=== PATIENT | female | born 1940 | race Caucasian/White ===

== ENCOUNTER 2025-01-25 15:20 | Emergency (ER) | payer MEDICARE, SELFPAY ==
[2025-01-25 15:27] VITALS: BP 159/96
[2025-01-25 16:24] VITALS: BP 147/66
[2025-01-25 16:40] LABS: % Basophils 1.2 % (0-2); % Eosinophils 0.6 % (0-6); % Immature Granulocytes 0.5 % (0-0.5); % Lymphocytes 18.3 % (20.5-51.1); % Monocytes 11.6 % (1.7-9.3); % Neutrophils 67.8 % (42.2-75.2); Absolute Basophils 0.1 10^3/uL (0-0.2); Absolute Eosinophils 0.1 10^3/uL (0-0.7); Absolute Lymphocytes 1.4 10^3/uL (1.2-3.4); Absolute Monocytes 0.9 10^3/uL (0.1-0.6); Absolute Neutrophils 5.2 10^3/uL (1.4-6.5); Hematocrit 39.7 % (37.0-47.0); Hemoglobin 13.6 g/dL (12.0-16.0); Mean Corp Hgb Conc. 34.3 g/dL (33.0-37.0); Mean Corpuscular Hgb 30.8 pg (27.0-31.0); Mean Platelet Volume 9.3 fL (7.4-10.4); Nucleated Red Blood Cells % 0 %; Platelet Count 253 10^3/uL (130-400); Red Blood Cell Count 4.41 10^6/uL (4.20-5.40); White Blood Cell Count 7.7 10^3/uL (4.8-10.8)
[2025-01-25 16:49] LABS: ALT (SGPT) 20 U/L (0-35); AST (SGOT) 27 U/L (14-36); Albumin 4.8 g/dl (3.5-5.0); Alkaline Phosphatase 41 U/L (38-126); Blood Urea Nitrogen 30 mg/dl (7-17); Carbon Dioxide 28 mmol/L (22-30); Chloride 102 mmol/L (98-107); Glucose 95 mg/dl (70-99); Lipase 63 U/L (23-300); Potassium 4.9 mmol/L (3.5-5.1); Sodium 136 mmol/L (135-145); Total Bilirubin 0.7 mg/dl (0.2-1.3); Total Protein 7.6 g/dl (6.3-8.2); eGFR 44.36
[2025-01-25 17:00] VITALS: BP 152/68
[2025-01-25] MEDS: PROTONIX IV 40 MG IV (17:10)
[2025-01-25] MEDS: MAALOX 30 ML PO (17:12)
--- NOTE | 2025-01-25 17:26 | ED.GENMED ---
History of Present Illness
General
Chief Complaint: Abdominal Pain
Time Seen by Provider: 01/25/25 16:27
History of Present Illness
History of Present Illness:
84-year-old female with history of GERD presenting to the emergency department for upper abdominal pain. Patient reports symptoms started yesterday around lunchtime, however had not yet eaten. She tried taking her pantoprazole, famotidine, Pepcid
without relief. Does note a history of severe GERD, however this feels worse than usual. She notes constant discomfort in the middle of her abdomen. She was able to eat breakfast today. She denies chest pain or difficulty breathing. Denies any
history of abdominal surgeries. Denies any fever. Denies any additional acute medical complaints
Phy Exam
Physical Exam
Physical Exam:
General: Well-appearing, no clinical signs of dehydration, nontoxic and in no acute distress
HEENT: protecting airway
Neck: appears supple
CV: Normal heart rate, regular rhythm, no evidence of cyanosis
Resp: No accessory muscle use, no increased work of breathing, lungs clear to auscultation bilaterally
Abd: Soft and non-distended, mild tenderness to the epigastric and left upper quadrant without rebound or guarding
Extremities: No deformities, no swelling
Neuro: alert, no focal neurologic deficit
: deferred
Rectal: deferred
Psych: Normal affect
Skin: Intact
Course
Orders/Labs/Results
Orders:
Orders
01/25/25 16:16
Electrocardiogram (*1) Urgent
Reason for Study: Abdominal Pain
EKG- Treatment ONCE
01/25/25 16:21
Complete Blood Count/With Diff Urgent
Comprehensive Metabolic Panel Urgent
Lipase Urgent
01/25/25 17:04
CT Abd/pelvis W Iv Cont Urgent
Comment:
Reason For Exam: upper abd discomfort, epigastric and LUQ
Mag Hydrox/Al Hydrox/Simeth [Maalox] 30 ml PO NOW STA
Pantoprazole [Protonix IV] 40 mg IV NOW STA
Abnormal Lab Results
01/25/25
16:21
Absolute Monos (auto) 0.9 H 10^3/uL
(0.1-0.6)
Lymphocytes % 18.3 L %
(20.5-51.1)
Monocytes % 11.6 H %
(1.7-9.3)
BUN 30 H mg/dl
(7-17)
Creatinine 1.2 H mg/dL
(0.6-1.0)
01/25/25 16:21
01/25/25 16:21
Vital Signs
Initial and Last Documented VS:
Initial Vital Signs
Temp Pulse Resp BP Pulse Ox
97.9 F 79 16 159/96 97
01/25/25 15:27 01/25/25 15:27 01/25/25 15:27 01/25/25 15:27 01/25/25 15:27
Last Documented Vital Signs
Temp Pulse Resp BP Pulse Ox
97.9 F 62 16 152/68 97
01/25/25 15:27 01/25/25 17:45 01/25/25 17:45 01/25/25 17:00 01/25/25 17:30
MDM/Problems Addressed
MDM/Problems Addressed:
84-year-old female with history of GERD presenting to the emergency department for upper abdominal pain and burning. Vital signs significant for mild hypertension.
On exam patient resting comfortably, no acute distress. Mild discomfort to the upper abdomen without significant rebound or guarding. Ultimately suspect gastritis given known history of severe GERD and location of discomfort. Pancreatitis is also
consideration. Will plan for laboratory analysis including lipase. ACS is a consideration. EKG obtained, no acute abnormality. Patient denying any chest pain, lower suspicion. Will treat patient with pantoprazole and Maalox. Given patient's
age and reproducible pain, will plan for CT imaging
19:20 -CT is consistent with gastritis. Otherwise minor incidental findings. On reassessment, patient remained stable. Feel stable for discharge with outpatient supportive therapy. Does note for breakfast today she had some orange juice and
coffee. Advised diet modification for the next several days until symptoms resolved, bland diet. Otherwise advising outpatient GI follow-up and continued use of her medications. Return precautions discussed the patient and son at bedside who
verbalized understanding
*EKG
Interpreted by ED Provider?: Yes
EKG Intrepretation Date: 01/25/25
EKG Intrepretation Time: 18:01
Interpretation: normal
Heart Rate: 67
Rate: normal
Rhythm: sinus
[place]: normal axis
Interval: normal interval
QRS Pattern: normal QRS
Ischemia: no ischemia
*Critical Care Note
Total Time (30-74mins, 75-104mins- exclusive of procedures): Not Applicable
ED Attending Note
-
Portions of this chart may have been created with voice recognition software.� Occasional wrong word or��sound alike� substitutions may have occurred due to the inherent limitations of voice recognition software.
Discharge Plan
Departure
Referrals:
Mery Victor MD [Family Provider]
Interventions
Interventions:
*Risk Screen - Suicide Last Done: 01/25/25 15:27
*Neglect/Abuse Screening Last Done: 01/25/25 15:27
GV-Edyzce-Cckgiryvte Assessment Last Done: 01/25/25 16:28
Discharge Date and Time
Print Language: EMIRATI
[2025-01-25 19:18] VITALS: BP 168/83
== END 2025-01-25 19:29 | disposition home or self-care (01) ==
LOC: EMR 15:20
PROVIDERS: EMERGENCY PHYSICIAN Student in an Organized Health Care Education/Training Program; FAMILY PHYSICIAN Family Medicine
DX: K29.70 Gastritis, unspecified, without bleeding (principal); I10 Essential (primary) hypertension
CPT/HCPCS: 96374; 99284; 74177; 80053; 83690; 85025; 93005; Q9967

== ENCOUNTER 2025-05-16 07:43 | Day surgery (SDC) | payer MEDICARE, SELFPAY | END 2025-05-16 14:15 | disposition home or self-care (01) | LOC: GI 07:43 | PROVIDERS: ATTENDING PHYSICIAN Internal Medicine; FAMILY PHYSICIAN Family Medicine | DX: R10.13 Epigastric pain (principal); K44.9 Diaphragmatic hernia without obstruction or gangrene; K29.70 Gastritis, unspecified, without bleeding; K29.50 Unspecified chronic gastritis without bleeding | CPT/HCPCS: 43239; 88305; 88342 ==